=== PATIENT | female | born 1980 | race Caucasian/White ===

== ENCOUNTER 2016-12-15 02:57 | Emergency (ER) | payer BC, OTHER ==
[~2016-12-15] VITALS: Ht 154.9 cm; Wt 66.6 kg
[2016-12-15] MEDS ORDERED: SOD CHLORIDE 0.9% 1,000 ML IV STA (03:07)
[2016-12-15] MEDS ORDERED: ONDANSETRON 4 MG INJ IV STA (03:07)
[2016-12-15] MEDS ORDERED: morphine 4 MG/ML VIAL IV STA (03:07)
[2016-12-15] MEDS ORDERED: FAMOTIDINE 20 MG INJ IV STA (03:07)
[2016-12-15] MEDS ORDERED: LIDOCAINE/MYLANTA 40 ML BTL PO STA (03:07)
[2016-12-15] MEDS ORDERED: ONDANSETRON (ODT) 4 MG TAB ODT STA (03:14)
[2016-12-15 04:19] LABS: ADD SCAN DIFF NO
[2016-12-15 04:21] LABS: ADD UMIC YES; URINE BILIRUBIN (Dip) NEGATIVE (NEGATIVE); URINE BLOOD (Dip) TRACE (NEGATIVE); URINE COLOR YELLOW (YELLOW); URINE GLUCOSE (Dip) NEGATIVE (NEGATIVE); URINE KETONES (Dip) NEGATIVE (NEGATIVE); URINE LEUKOCYTE ESTERASE (Dip) NEGATIVE (NEGATIVE); URINE NITRITE (Dip) NEGATIVE (NEGATIVE); URINE TOTAL PROTEIN (Dip) NEGATIVE (NEGATIVE); URINE UROBILINOGEN (Dip) 1.0 E.U./dL (0.1-1.0)
[2016-12-15 04:23] LABS: BASOPHILS % 0.4 % (0.0-2.0); EOSINOPHILS # 0.2 10^3/ul (0.0-0.5); EOSINOPHILS % 1.9 % (0.0-7.0); HEMATOCRIT 37.7 % (37.0-47.0); HEMOGLOBIN 12.1 g/dl (12.0-16.0); LYMPHOCYTES # 2.3 10^3/ul (0.8-2.9); LYMPHOCYTES % 24.1 % (15.0-51.0); MEAN CORPUSCULAR HEMOGLOBIN 28.5 pg (29.0-33.0); MEAN CORPUSCULAR HGB CONC 32.1 g/dl (32.0-37.0); MEAN CORPUSCULAR VOLUME 88.7 fl (82.0-101.0); MEAN PLATELET VOLUME 10.4 fl (7.4-10.4); MONOCYTE # 0.7 10^3/ul (0.3-0.9); MONOCYTES % 7.7 % (0.0-11.0); NEUTROPHIL # 6.2 10^3/ul (1.6-7.5); NEUTROPHILS % 65.7 % (39.0-77.0); PLATELET COUNT 265 10^3/UL (140-415); RED BLOOD COUNT 4.25 10^6/ul (4.20-5.40); RED CELL DISTRIBUTION WIDTH 13.1 % (11.5-14.5); WHITE BLOOD COUNT 9.4 10^3/ul (4.8-10.8)
[2016-12-15 04:40] LABS: SQUAMOUS EPITHELIAL CELL,UR MODERATE; URINE RBCS 0-2 /HPF (0)
[2016-12-15 04:51] LABS: ALBUMIN 4.5 g/dl (3.3-4.9); ALBUMIN/GLOBULIN RATIO 1.73; BILIRUBIN,INDIRECT 0.3 mg/dl (0-1.1); BILIRUBIN,TOTAL 0.3 mg/dl (0.2-1.3); CALCIUM 8.7 mg/dl (8.4-10.2); CREATININE 0.58 mg/dl (0.44-1.00); POTASSIUM 3.9 mmol/L (3.5-5.1); TOTAL PROTEIN 7.1 g/dl (6.1-8.1)
--- NOTE | 2016-12-15 05:11 | ERD ---
ER Documentation Chief Complaint Date/Time DATE: 12/15/16 TIME: 05:08 Chief Complaint N/V since yesterday worse after eating in epigastric area HPI This is a 36-year-old female comes in with epigastric abdominal pain nausea vomiting since yesterday. We will at least voiced the belief no bleeding. Pain is mild to moderate in intensity. No fevers or chills. No sick contacts. Patient has history of gastritis in the past. ROS All systems reviewed and are negative except as per history of present illness. Allergies Allergies: Coded Allergies: No Known Allergy (Unverified Allergy, Unknown, 05/31/06) PMhx/Soc Medical and Surgical Hx: pt denies Medical Hx History of Surgery: Yes () Anesthesia Reaction: No Hx Neurological Disorder: No Hx Respiratory Disorders: No Hx Cardiac Disorders: No Hx Psychiatric Problems: No Hx Miscellaneous Medical Probl: No Hx Alcohol Use: No Hx Substance Use: No Hx Tobacco Use: No Smoking Status: Never smoker Physical Exam Vitals Vital Signs Date Time Temp Pulse Resp B/P Pulse Ox O2 Delivery O2 Flow Rate FiO2 12/15/16 04:58 98.0 67 16 121/69 99 Room Air 12/15/16 02:59 97.8 73 24 134/68 97 Physical Exam Const: [] Head: Atraumatic Eyes: Normal Conjunctiva ENT: Normal External Ears, Nose and Mouth. Neck: Full range of motion..~ No meningismus. Resp: Clear to auscultation bilaterally Cardio: Regular rate and rhythm, no murmurs Abd: Soft, non tender, non distended. Normal bowel sounds Skin: No petechiae or rashes Back: No midline or flank tenderness Ext: No cyanosis, or edema Neur: Awake and alert Psych: Normal Mood and Affect Result Diagram: 12/15/1640912/15/16409 Results 24 hrs Laboratory Tests Test 12/15/16 04:10 White Blood Count 9.410^3/ul Red Blood Count 4.2510^6/ul Hemoglobin 12.1g/dl Hematocrit 37.7% Mean Corpuscular Volume 88.7fl Mean Corpuscular Hemoglobin 28.5pg Mean Corpuscular Hemoglobin Concent 32.1g/dl Red Cell Distribution Width 13.1% Platelet Count 71562^3/UL Mean Platelet Volume 10.4fl Neutrophils % 65.7% Lymphocytes % 24.1% Monocytes % 7.7% Eosinophils % 1.9% Basophils % 0.4% Nucleated Red Blood Cells % 0.0/100WBC Neutrophils # 6.210^3/ul Lymphocytes # 2.310^3/ul Monocytes # 0.710^3/ul Eosinophils # 0.210^3/ul Basophils # 0.010^3/ul Nucleated Red Blood Cells # 0.010^3/ul Urine Color YELLOW Urine Clarity CLEAR Urine pH 5.5 Urine Specific [place] >=1.030 Urine Ketones NEGATIVE Urine Nitrite NEGATIVE Urine Bilirubin NEGATIVE Urine Urobilinogen 1.0 E.U./dL Urine Leukocyte Esterase NEGATIVE Urine Microscopic RBC 0-2/HPF Urine Microscopic WBC 2-5/HPF Urine Squamous Epithelial Cells MODERATE Urine Hemoglobin TRACE Urine Glucose NEGATIVE% Urine Total Protein NEGATIVE Sodium Level 142mmol/L Potassium Level 3.9mmol/L Chloride Level 107mmol/L Carbon Dioxide Level 25mmol/L Anion Gap 14 Blood Urea Nitrogen 16mg/dl Creatinine 0.58mg/dl Glucose Level 108mg/dl Calcium Level 8.7mg/dl Total Bilirubin 0.3mg/dl Direct Bilirubin 0.00mg/dl Indirect Bilirubin 0.3mg/dl Aspartate Amino Transf (AST/SGOT) 81IU/L Alanine Aminotransferase (ALT/SGPT) 63IU/L Alkaline Phosphatase 69IU/L Total Protein 7.1g/dl Albumin 4.5g/dl Globulin 2.60g/dl Albumin/Globulin Ratio 1.73 Lipase 63U/L Current Medications Medications (Trade) Dose Ordered Sig/Mary Lou Route PRN Reason Start Time Stop Time Status Last Admin Dose Admin Sodium Chloride (NS) 1,000 ml @ 1,000 mls/hr Q1H STAT IV 12/15/16 03:07 12/15/16 04:06 DC 12/15/16 04:13 Morphine Sulfate (morphine) 4 mg ONCE STAT IV 12/15/16 03:07 12/15/16 03:09 DC 12/15/16 04:02 Ondansetron HCl (Zofran Inj) 4 mg ONCE STAT IV 12/15/16 03:07 12/15/16 03:09 DC 12/15/16 04:02 Famotidine (Pepcid Iv) 20 mg ONCE STAT IV 12/15/16 03:07 12/15/16 03:09 DC 12/15/16 04:02 Miscellaneous Medication (Gi Cocktail (2)) 40 ml ONCE STAT PO 12/15/16 03:07 12/15/16 03:09 DC 12/15/16 03:27 Ondansetron HCl (Zofran Odt) 4 mg ONCE STAT ODT 12/15/16 03:14 12/15/16 03:15 DC 12/15/16 03:28 Procedures/MDM Medical decision-making: Very pleasant female epigastric development consistent with a history of gastritis. At this point is feeling much better. Patient be discharged home. Discharge home with Protonix and Carafate. Told to follow-up in 8 hours for serial abdominal exams. Patient understands care plan and diagnosis. Serial negative abdominal exams. Tolerating p.o. here in the ER. Departure Diagnosis: Primary Impression: Abdominal pain Abdominal location: epigastric Qualified Code: R10.13 - Epigastric pain Condition: Stable BERNICE TIPTON Dec 15, 2016 05:11
[2016-12-15] MEDS ORDERED: SUCR1TAB56 PO (05:23)
[2016-12-15] MEDS ORDERED: RANI150T9 PO (05:23)
[2016-12-15 05:40] VITALS: BP 118/64; PULSE 71; RESP 16; TEMP 98
[2016-12-15] MEDS ORDERED: DICY10CA60 PO (22:46)
[2016-12-15] MEDS ORDERED: HYDR-906 PO (22:46)
[2016-12-16 01:31] VITALS: Ht 154.9 cm; Wt 66.6 kg
== END 2016-12-15 05:45 | disposition home or self-care (01) ==
LOC: E/R 02:57
DX: R10.13 Epigastric pain (principal)
CPT/HCPCS: 36415; 80053; 81001; 83690; 85025; 96374; 96375; J2270; J2405; J7030; Z7502; Z7610

== ENCOUNTER 2016-12-15 19:38 | Inpatient (IN) | payer OTHER ==
[~2016-12-15] VITALS: Ht 154.9 cm; Wt 66.6 kg
[~2016-12-15 19:38] MED LIST: RANI150T9 PO; SUCR1TAB56 PO
[2016-12-15] MEDS ORDERED: SOD CHLORIDE 0.9% 1,000 ML IV STA (21:00)
[2016-12-15] MEDS ORDERED: PANTOPRAZOLE 40 MG INJ IV ONE (21:00)
[2016-12-15] MEDS ORDERED: ONDANSETRON 4 MG INJ IV STA (21:00)
[2016-12-15] MEDS ORDERED: LIDOCAINE/MYLANTA 40 ML BTL PO ONE (21:00)
[2016-12-15 21:25] LABS: ADD SCAN DIFF NO
[2016-12-15 21:27] LABS: BASOPHILS % 0.5 % (0.0-2.0); EOSINOPHILS # 0.1 10^3/ul (0.0-0.5); EOSINOPHILS % 1.7 % (0.0-7.0); HEMATOCRIT 39.5 % (37.0-47.0); HEMOGLOBIN 12.6 g/dl (12.0-16.0); LYMPHOCYTES # 1.4 10^3/ul (0.8-2.9); MEAN CORPUSCULAR HEMOGLOBIN 28.1 pg (29.0-33.0); MEAN CORPUSCULAR HGB CONC 31.9 g/dl (32.0-37.0); MEAN CORPUSCULAR VOLUME 88.2 fl (82.0-101.0); MEAN PLATELET VOLUME 9.9 fl (7.4-10.4); MONOCYTE # 0.5 10^3/ul (0.3-0.9); MONOCYTES % 8.8 % (0.0-11.0); NEUTROPHIL # 3.9 10^3/ul (1.6-7.5); NEUTROPHILS % 64.8 % (39.0-77.0); PLATELET COUNT 267 10^3/UL (140-415); RED BLOOD COUNT 4.48 10^6/ul (4.20-5.40); RED CELL DISTRIBUTION WIDTH 12.8 % (11.5-14.5)
[2016-12-15 21:28] LABS: ADD UMIC YES; UR BILIRUBIN (Dip) 2+ (NEGATIVE); UR BLOOD (Dip) TRACE (NEGATIVE); UR COLOR DK. YELLOW (YELLOW); UR GLUCOSE (Dip) NEGATIVE (NEGATIVE); UR KETONES (Dip) NEGATIVE (NEGATIVE); UR LEUKOCYTE ESTERASE (Dip) NEGATIVE (NEGATIVE); UR NITRITE (Dip) NEGATIVE (NEGATIVE); UR TOTAL PROTEIN (Dip) NEGATIVE (NEGATIVE); UR UROBILINOGEN (Dip) 1.0 E.U./dL (0.1-1.0)
[2016-12-15 21:41] LABS: BACTERIA,URINE FEW; ICTOTEST POSITIVE (NEGATIVE); UR CLARITY SL HAZY (CLEAR); UR SQUAMOUS EPITHELIAL CELL MODERATE; URINE RBCS 0-2 /HPF (0)
[2016-12-15 21:53] LABS: ALBUMIN 4.6 g/dl (3.3-4.9); ALBUMIN/GLOBULIN RATIO 1.48; BILIRUBIN,DIRECT 0.8 mg/dl (0.00-0.20); BILIRUBIN,INDIRECT 1.1 mg/dl (0-1.1); BILIRUBIN,TOTAL 1.9 mg/dl (0.2-1.3); CALCIUM 9.4 mg/dl (8.4-10.2); CREATININE 0.66 mg/dl (0.44-1.00); POTASSIUM 3.8 mmol/L (3.5-5.1); TOTAL PROTEIN 7.7 g/dl (6.1-8.1)
--- NOTE | 2016-12-15 21:55 | RADRPT ---
PROCEDURE: Right upper quadrant abdominal ultrasound. CLINICAL INDICATION: Abdominal pain TECHNIQUE: Muniz scale and color doppler ultrasound images of the right upper quadrant. COMPARISON: None FINDINGS: Pancreas: Visualized portions appear of normal echogenicity, no focal lesions. Liver: Morphology: Normal in size and contour. Echogenicity: Normal. Focal lesions: None. Main portal vein: Patent with hepatopetal flow. Biliary System: Normal appearing gallbladder wall. 1.5 cm gallstone within the neck of the gallbladder. Remainder of the gallbladder appears filled wi th sludge. No intrahepatic biliary dilatation. Common bile duct measures 4.5 mm in maximal dimension. Kidneys: Right 9.9 cm in length. Right renal cortical thickness is preserved. Normal echogenicity. No hydronephrosis. No renal calculi. No focal lesions. No free fluid identified. IMPRESSION: Cholelithiasis without evidence of abnormal gallbladder wall thickening to suggest cholecystitis. Normal caliber of the intrahepatic and extrahepatic biliary system. RPTAT: AADD .Yousif Berrios MD, MD Date Time Electronically viewed and signed by .Yousif Berrios MD, on 12/15/2016 21:54 .B/
[2016-12-15] MEDS ORDERED: HYDR-906 PO (22:46)
[2016-12-15] MEDS ORDERED: DICY10CA60 PO (22:46)
--- NOTE | 2016-12-16 00:29 | ERA ---
ER Documentation Chief Complaint Date/Time DATE: 12/16/16 TIME: 00:23 Chief Complaint epigastric pain x 4 days HPI 36-year-old female patient with no significant past medical history presents to the ED complaining of worsening epigastric pain that started 2 days ago. Reports that now she has right upper quadrant pain. States that she has some slight nausea and a few episodes of nonbilious nonbloody vomiting. Patient is denying any fever, chills, chest pain, shortness of breath, wheezing, diarrhea. Reports that she has daily bowel movements. Denies any vaginal bleeding, vaginal discharge, dysuria, urgency, frequency, flank pain. ROS All systems reviewed and are negative except as per history of present illness. Medications Home Meds Active Scripts Amoxicillin/Potassium Clav (Amox-Clav 875-125 mg Tablet) 875-125 mg Tab, 1 TAB PO BID for 5 Days, TAB Prov:GISSELLE RENO 12/17/16 Acetaminophen (MAPAP) 325 Mg Tablet, 650 MG PO Q6H Y for PAIN LEVEL 1-3 OR FEVER , #30 TAB OTC Prov:GISSELLE RENO 12/17/16 Ranitidine Hcl* (Zantac*) 150 Mg Tablet, 150 MG PO BID Y for EPIGASTRIC PAIN, # 30 TAB Prov:BERNICE TIPTON 12/15/16 Discontinued Scripts Sucralfate* (Carafate*) 1 Gm Tab, 1 GM PO QID, #30 TAB Prov:BERNICE TIPTON 12/15/16 Allergies Allergies: Coded Allergies: No Known Allergy (Unverified Allergy, Unknown, 05/31/06) PMhx/Soc Medical and Surgical Hx: pt denies Medical Hx History of Surgery: Yes () Anesthesia Reaction: No Hx Neurological Disorder: No Hx Respiratory Disorders: No Hx Cardiac Disorders: No Hx Psychiatric Problems: No Hx Miscellaneous Medical Probl: No Hx Alcohol Use: No Hx Substance Use: No Hx Tobacco Use: No Smoking Status: Never smoker Physical Exam Vitals Vital Signs Date Time Temp Pulse Resp B/P Pulse Ox O2 Delivery O2 Flow Rate FiO2 12/15/16 19:44 98.5 74 20 131/57 98 Physical Exam Const: [id number], well-nourished. In no acute distress. Head: Atraumatic, normocephalic Eyes: Normal Conjunctiva without injection. No purulent discharge. ENT: Normal external ear, nose. Moist oropharynx without tonsillar exudates. Non -erythematous pharynx. Uvula midline. No drooling. No trismus. Neck: No cervical midline tenderness. Full range of motion. No meningismus. No cervical lymphadenopathy. No JVD. Resp: Clear to auscultation bilaterally. No wheezing, rhonchi, rales, or crackles. No accessory muscle use. No retractions. Cardio: Regular rate and rhythm. No murmurs, rubs or gallops. Abd: Soft, right upper quadrant tenderness, epigastric tenderness, non distended. Normal bowel sounds. No palpable masses. No rebound tenderness. No guarding. Negative McBurney's point. Negative psoas sign. Negative obturator sign. Skin: No petechiae or rashes Back: No midline tenderness. No CVA tenderness. Ext: No cyanosis, or edema. Neur: Awake and alert. Normal gait. Normal coordination. Psych: Normal Mood and Affect Results 24 hrs Laboratory Tests Test 12/15/16 21:00 12/15/16 21:10 White Blood Count 6.010^3/ul Red Blood Count 4.4810^6/ul Hemoglobin 12.6g/dl Hematocrit 39.5% Mean Corpuscular Volume 88.2fl Mean Corpuscular Hemoglobin 28.1pg Mean Corpuscular Hemoglobin Concent 31.9g/dl Red Cell Distribution Width 12.8% Platelet Count 37206^3/UL Mean Platelet Volume 9.9fl Neutrophils % 64.8% Lymphocytes % 24.0% Monocytes % 8.8% Eosinophils % 1.7% Basophils % 0.5% Nucleated Red Blood Cells % 0.0/100WBC Neutrophils # 3.910^3/ul Lymphocytes # 1.410^3/ul Monocytes # 0.510^3/ul Eosinophils # 0.110^3/ul Basophils # 0.010^3/ul Nucleated Red Blood Cells # 0.010^3/ul Sodium Level 143mmol/L Potassium Level 3.8mmol/L Chloride Level 106mmol/L Carbon Dioxide Level 27mmol/L Anion Gap 14 Blood Urea Nitrogen 12mg/dl Creatinine 0.66mg/dl Glucose Level 100mg/dl Calcium Level 9.4mg/dl Total Bilirubin 1.9mg/dl Direct Bilirubin 0.80mg/dl Indirect Bilirubin 1.1mg/dl Aspartate Amino Transf (AST/SGOT) 665IU/L Alanine Aminotransferase (ALT/SGPT) 565IU/L Alkaline Phosphatase 147IU/L Total Protein 7.7g/dl Albumin 4.6g/dl Globulin 3.10g/dl Albumin/Globulin Ratio 1.48 Lipase 108U/L Urine Color DK. YELLOW Urine Clarity SL HAZY Urine pH 7.0 Urine Specific [place] 1.010 Urine Ketones NEGATIVE Urine Nitrite NEGATIVE Urine Bilirubin 2+ Urine Ictotest POSITIVE Urine Urobilinogen 1.0 E.U./dL Urine Leukocyte Esterase NEGATIVE Urine Microscopic RBC 0-2/HPF Urine Microscopic WBC 2-5/HPF Urine Squamous Epithelial Cells MODERATE Urine Bacteria FEW Urine Yeast FEW Urine Hemoglobin TRACE Urine Glucose NEGATIVE% Urine Total Protein NEGATIVE Current Medications Medications (Trade) Dose Ordered Sig/Mary Lou Route PRN Reason Start Time Stop Time Status Last Admin Dose Admin Sodium Chloride (NS) 1,000 ml @ 1,000 mls/hr Q1H STAT IV 12/15/16 21:00 12/15/16 21:59 DC 12/15/16 21:17 Pantoprazole (Protonix Iv) 40 mg ONCE ONCE IV 12/15/16 21:00 12/15/16 21:02 DC 12/15/16 21:17 Miscellaneous Medication (Gi Cocktail (2)) 40 ml ONCE ONCE PO 12/15/16 21:00 12/15/16 21:02 DC 12/15/16 21:17 Ondansetron HCl (Zofran Inj) 4 mg ONCE STAT IV 12/15/16 21:00 12/15/16 21:02 DC 12/15/16 21:17 Procedures/MDM This is a 36-year-old female with no significant past medical history presents to the ED complaining of epigastric pain and right upper quadrant pain that worsened. Patient was seen here yesterday and had a workup which was negative for any acute abdomen. Patient was further worked up with CBC, CMP, lipase, UA , urine , gallbladder ultrasound. Patient's pain and symptoms have improved after treatment with IV Protonix, 4 mg IV Zofran, GI cocktail. CBC: No leukocytosis. No e/o of systemic infection. No e/o anemia. CMP: No e/o severe acidosis, alkalosis, renal failure, diabetic ketoacidosis, liver disease Lipase within normal limits. Urine: No leukocyte esterase, no nitrites, no hematuria. Urine : negative PROCEDURE: Right upper quadrant abdominal ultrasound. CLINICAL INDICATION: Abdominal pain TECHNIQUE: Muniz scale and color doppler ultrasound images of the right upper quadrant. COMPARISON: None FINDINGS: Pancreas: Visualized portions appear of normal echogenicity, no focal lesions. Liver: Morphology: Normal in size and contour. Echogenicity: Normal. Focal lesions: None. Main portal vein: Patent with hepatopetal flow. Biliary System: Normal appearing gallbladder wall. 1.5 cm gallstone within the neck of the gallbladder. Remainder of the gallbladder appears filled with sludge. No intrahepatic biliary dilatation. Common bile duct measures 4.5 mm in maximal dimension. Kidneys: Right 9.9 cm in length. Right renal cortical thickness is preserved. Normal echogenicity. No hydronephrosis. No renal calculi. No focal lesions. No free fluid identified. IMPRESSION: Cholelithiasis without evidence of abnormal gallbladder wall thickening to suggest cholecystitis. Normal caliber of the intrahepatic and extrahepatic biliary system. Patient has cholelithiasis and liver enzymes are elevated. Elevated bilirubin at 1.9. Patient could have early choledocholithiasis. Low suspicion for gastritis, GERD, peptic ulcer disease, pancreatitis, appendicitis, bowel obstruction, ileus, volvulus, nephrolithiasis, pyelonephritis, hepatitis, perforated viscus, diverticulitis, abdominal hernia, acute abdomen, mesenteric ischemia or other emergent conditions. My supervising physician, Dr. Tipton who agreed with the management and discharge plan. Patient agreed to admission. We both agreed to admit the patient at this time. Patient agreed to admission. Questions were answered. Patient will now be under the care of Dr. Tipton. Departure Diagnosis: Primary Impression: Cholelithiasis Qualified Code: K80.80 - Biliary calculus of other site without obstruction Condition: Stable HALI MOLINA PA-C Dec 16, 2016 00:29
[2016-12-16 00:53] VITALS: PULSE 69; TEMP 99.1
[2016-12-16 01:25] VITALS: BP 131/61; RESP 18
[2016-12-16 01:46] VITALS: Ht 154.9 cm; Wt 66.6 kg
[2016-12-16] MEDS ORDERED: NACL 0.9% 3 ML SYG IV SCH (02:30)
[2016-12-16] MEDS ORDERED: ONDANSETRON 4 MG INJ IV PRN (02:30)
[2016-12-16] MEDS ORDERED: BISACODYL 10 MG SUPP PR PRN (02:30)
[2016-12-16] MEDS ORDERED: HYDROCODONE/APAP (5/325) TAB PO PRN ×2 (02:30)
[2016-12-16] MEDS ORDERED: DOCUSATE SODIUM 100 MG CAP PO PRN (02:30)
[2016-12-16] MEDS ORDERED: ACETAMINOPHEN 325 MG TAB PO PRN (02:30)
[2016-12-16] MEDS ORDERED: MAGNESIUM HYDROXIDE 30ML CUP PO PRN (02:30)
[2016-12-16] MEDS ORDERED: morphine 2 MG INJ IV PRN (02:30)
[2016-12-16] MEDS: D5-NS + KCL 20 MEQ 1,000 ML IV SCH ×3 (03:13→21:02)
[2016-12-16] MEDS: PIPER-TAZO 3.375 GM IV (PMX) 100 ML IVPB SCH ×3 (05:54→21:02)
[2016-12-16 06:02] LABS: ADD SCAN DIFF NO
[2016-12-16 06:07] LABS: BASOPHILS % 0.4 % (0.0-2.0); EOSINOPHILS # 0.1 10^3/ul (0.0-0.5); EOSINOPHILS % 2.3 % (0.0-7.0); HEMATOCRIT 35.2 % (37.0-47.0); HEMOGLOBIN 11.8 g/dl (12.0-16.0); LYMPHOCYTES # 1.2 10^3/ul (0.8-2.9); LYMPHOCYTES % 22.9 % (15.0-51.0); MEAN CORPUSCULAR HEMOGLOBIN 29.4 pg (29.0-33.0); MEAN CORPUSCULAR HGB CONC 33.5 g/dl (32.0-37.0); MEAN CORPUSCULAR VOLUME 87.6 fl (82.0-101.0); MEAN PLATELET VOLUME 10.7 fl (7.4-10.4); MONOCYTE # 0.4 10^3/ul (0.3-0.9); MONOCYTES % 8.1 % (0.0-11.0); NEUTROPHIL # 3.5 10^3/ul (1.6-7.5); NEUTROPHILS % 66.3 % (39.0-77.0); PLATELET COUNT 239 10^3/UL (140-415); RED BLOOD COUNT 4.02 10^6/ul (4.20-5.40); RED CELL DISTRIBUTION WIDTH 12.8 % (11.5-14.5); WHITE BLOOD COUNT 5.3 10^3/ul (4.8-10.8)
[2016-12-16 06:31] LABS: INR 1.03; PROTIME 13.5 Sec (12.2-14.2); PT RATIO 1.1
[2016-12-16 06:32] LABS: PARTIAL THROMBOPLASTIN TIME 28.2 Sec (25.0-35.0)
[2016-12-16 06:53] LABS: ALBUMIN 4.2 g/dl (3.3-4.9); ALBUMIN/GLOBULIN RATIO 1.68; BILIRUBIN,DIRECT 0.9 mg/dl (0.00-0.20); BILIRUBIN,INDIRECT 1.2 mg/dl (0-1.1); BILIRUBIN,TOTAL 2.1 mg/dl (0.2-1.3); CALCIUM 8.7 mg/dl (8.4-10.2); CHOL/HDL RATIO 3.4 RATIO; CREATININE 0.66 mg/dl (0.44-1.00); PHOSPHORUS 3.4 mg/dl (2.5-4.9); POTASSIUM 3.8 mmol/L (3.5-5.1); TOTAL PROTEIN 6.7 g/dl (6.1-8.1)
[2016-12-16 07:40] VITALS: BP 141/78; RESP 18
[2016-12-16] MEDS: FAMOTIDINE 20 MG INJ IV SCH ×2 (09:16→21:02)
--- NOTE | 2016-12-16 09:32 | RADRPT ---
PROCEDURE: MRCP. CLINICAL INDICATION: Abdominal pain. TECHNIQUE: MRCP was performed. Patient was examined without contrast. 3-D coronal rotating MIP i mages of the biliary tree are available for review. COMPARISON: Ultrasound, 12/15/2016 FINDINGS: The gallbladder is distended and contains sludge. 3.2 cm gallstone is seen in the gallbladder neck. No definite evidence of gallbladder wall thickening or pericholecystic fluid is identified. There is no intra or extrahepatic biliary dilatation. No evidence of common duct stone, stricture or fill ing defect is identified. Pancreatic duct is normal in caliber. Liver, pancreas, spleen, adrenal glands and kidneys are unremarkable except for benign renal cysts. There is no obstructive uropathy. The stomach is grossly unremarkable. Abdominal aorta is normal in caliber. No retroperitoneal or ishaan hepatis lymphadenopathy is identified. There is no bowel o bstruction, abscess or ascites. The surrounding osseous structures are unremarkable. IMPRESSION: 1. The gallbladder is distended and contains sludge. Large gallstone is seen in the gallbladder ne ck. No gross evidence is seen to indicate cholecystitis. 2. No biliary dilatation or evidence of choledocholithiasis is identified. RPTAT: HDWR .Jeff Berman MD, MD Date Time Electronically viewed and signed by .Jeff Berman MD, on 12/16/2016 09:32 .R/
--- NOTE | 2016-12-16 12:29 | HP ---
DATE OF ADMISSION: 12/16/2016 CHIEF COMPLAINT ON ADMISSION: Abdominal pain. HISTORY OF PRESENT ILLNESS: This is a 36-year-old female who recently delivered a baby via C-sectio n 2 months ago, who started having severe epigastric pain 3 days ago. The patient having episodes o f nausea and vomiting also. She denies any fever or chills. The pain was persistent and worsening over the past 3 days. She came to the emergency department yesterday afternoon. In the emergency d [facility], she was complaining of the pain being epigastric and radiating now to her right upper yvette drant, severe, and also across her abdomen to her back. Her LFTs were abnormal with significant tra nsaminitis and a bilirubin of 1.9. She had a gallbladder ultrasound that showed cholelithiasis, but was inconclusive for acute cholecystitis. Her white count is within normal. She was admitted to [facility] surgical bed on IV antibiotics and IV fluids. This morning, her pain is completely resolved. She denies any nausea or vomiting this morning. She has been n.p.o. Repeat LFTs, this morning ar e still abnormal with significant transaminitis and a bilirubin of 2.1. She did have an MRCP done t hat did show cholelithiasis but no signs of choledocholithiasis per report. The gallbladder is dist ended and no evidence of common duct stone, stricture, or filling defect. The pancreatic duct was a lso normal. I had a discussion with Dr. Hanson from general surgery. Given her abnormal LFTs, he is still requesting for gastroenterology to evaluate the patient. There is a possibility that she did pass a stone versus it is not detected on MRCP. The patient is kept n.p.o. Dr. Torres has been al so consulted. ALLERGIES: NO KNOWN ALLERGIES. PAST MEDICAL HISTORY: None. PAST SURGICAL HISTORY: Status post 2 months ago for delivery of a healthy baby. SOCIAL HISTORY: The patient lives with family. She does not smoke or drink alcohol. REVIEW OF SYSTEMS: As per HPI. OUTPATIENT MEDICATIONS: None. PHYSICAL EXAMINATION: VITAL SIGNS: Temperature is 98.6, heart rate of 75, respiratory rate of 18, blood pressure 141/78. The patient is satting 98% on room air. GENERAL: She is alert and oriented x4. She is in no acute distress this morning. She has no tende rness to palpation. She is comfortable sitting in the chair. HEENT: Pupils are equally round and reactive to light. Extraocular muscles are intact. Anicteric sclerae. NECK: No JVD, no thyromegaly noted. HEART: Regular rate and rhythm. No murmur, rubs, or gallops. LUNGS: Clear to auscultation bilaterally. ABDOMEN: Soft, no tenderness elicited on the right upper quadrant or epigastric area. Bowel sounds are present. EXTREMITIES: No edema, clubbing or cyanosis. NEUROLOGIC: Grossly intact. LABORATORY DATA: White blood cell count is 5.3, hemoglobin 11.8, hematocrit 35.2, platelet count 23 9. Chemistry with a sodium of 143, potassium 2.8, chloride 109, bicarbonate 26, BUN 10, creatinine 0.66, glucose of 121, calcium of 8.7, phosphorus 3.4, magnesium 2.00, total bilirubin 2.1, AST 578, ALT 548, alkaline phosphatase of 152. Total protein 6.7, albumin 4.2. Triglycerides 71, cholestero l 148, LDL 91, HDL 43, lipase of 108. INR 1.03, PT 13.5, PTT 28.2. Urinalysis is negative for nitr ites or leukocyte esterase. RADIOLOGICAL DATA: 1. Gallbladder ultrasound showed cholelithiasis without evidence of normal gallbladder wall thicken ing to suggest cholecystitis, normal caliber, intrahepatic and extrahepatic biliary system. 2. MRCP this morning showed gallbladder distended and contains sludge. Large gallstones seen in th e gallbladder neck. No gross evidence seen to indicate cholecystitis, no biliary dilatation or evid ence of choledocholithiasis identified. 3. Acute hepatitis panel is pending. ASSESSMENT AND PLAN: This is a 36-year-old female with: 1. Acute onset of epigastric right upper quadrant pain with gallstone disease seen. No definite ev idence of acute cholecystitis or choledocholithiasis. I had a discussion with Dr. Hanson who also wo uld prefer to have gastroenterology see the patient and decide regarding need for ERCP versus assumi ng that the patient passed a stone. Depending on the patient's symptoms and course of her LFTs, she may need inpatient cholecystectomy versus outpatient. She is currently on antibiotics and n.p.o. Continue IV fluids. Follow up gastroenterology and further surgical recommendation. 2. Prophylaxis. SCDs to lower extremities for DVT prophylaxis. Pepcid for GI prophylaxis. DISPOSITION: Gastroenterology and general surgery consult pending. Dictated By: GISSELLE MARTINEZ/LINETTE Conf#: [id number] DID#: [id number]
--- NOTE | 2016-12-16 12:46 | CONS ---
Date/Time of Note Date/Time of Note DATE: 12/16/16 TIME: 12:46 Assessment/Plan Assessment/Plan Chief Complaint/Hosp Course 36-year-old female with cholelithiasis/chronic cholecystitis, possible choledocholithiasis * LFTs remain elevated. Continue to monitor * It is possible the patient either passed a common bile duct stone or has a distal stone which can sometimes be missed by MRCP. * Recommend GI consult for possible ERCP if LFTs do not decrease. * Continue n.p.o. IV fluid hydration until patient seen by gastroenterology. Further recommendations will be made based on patient's clinical course. Problems: Consultation Date/Type/Reason Admit Date/Time Dec 16, 2016 at 00:38 Date of Consultation: Dec 16, 2016 Type of Consultation: GENERAL SURGERY Reason for Consultation Abdominal pain Hx of Present Illness Patient is an otherwise healthy 36-year-old female status post recent 2 months ago who presented to the emergency room complaining of a 3 day history of abdominal pain. She describes the pain as being located in the epigastrium and right upper quadrant and radiating to the right flank. She denies any nausea/vomiting, change in bowel habits, or fever/chills. On arrival to the emergency room she was found to be afebrile and hemodynamically stable. She did have elevated liver function enzymes. An ultrasound which was done showed the presence of gallstones without any gallbladder wall thickening or pericholecystic fluid. An MRCP was done which showed gallstones without any evidence of cholecystitis or choledocholithiasis. The patient is since been admitted. She reports that her abdominal pain has resolved. She denies any similar episodes of pain in the past. A 14 point review of systems was conducted and was negative except for that which is mentioned in HPI Past Medical History Medical History: no pertinent history Past Surgical History Past Surgical Hx: other ( 4) Family History Significant Family History: no pertinent family hx Social History Smoking Status: Never smoker Exam/Review of Systems Vital Signs Vitals Vital Signs Date Time Temp Pulse Resp B/P Pulse Ox O2 Delivery O2 Flow Rate FiO2 12/16/16 07:40 98.6 75 18 141/78 98 12/16/16 00:53 Room Air Intake and Output 12/15/16 12/15/16 12/16/16 15:00 23:00 07:00 Intake Total 400 ml Balance 400 ml Exam GENERAL: Awake, alert, oriented x 3. No acute distress. SKIN: No jaundice. HEENT: PERRLA, EOMI, No Scleral Icterus NECK: Supple without JVD CARDIOVASCULAR: S1S2, regular rate and rhythm. No murmurs appreciated. RESPIRATORY: Clear to auscultation bilaterally. ABDOMEN: Soft, bowel sounds present, nondistended, nontender to palpation. EXTREMITIES: Free range of motion x 4. No cyanosis, edema, or clubbing. NEUROLOGIC: Cranial nerves II-XII are intact. Sensation is intact grossly. Results Result Diagram: 12/16/16 0420 12/16/16 0420 Results 24 hrs Laboratory Tests Test 12/15/16 21:00 12/15/16 21:10 12/16/16 04:20 White Blood Count 6.0 # 5.3 Red Blood Count 4.48 4.02 L Hemoglobin 12.6 11.8 L Hematocrit 39.5 35.2 L Mean Corpuscular Volume 88.2 87.6 Mean Corpuscular Hemoglobin 28.1 L 29.4 Mean Corpuscular Hemoglobin Concent 31.9 L 33.5 Red Cell Distribution Width 12.8 12.8 Platelet Count 267 239 Mean Platelet Volume 9.9 10.7 H Neutrophils % 64.8 66.3 Lymphocytes % 24.0 22.9 Monocytes % 8.8 8.1 Eosinophils % 1.7 2.3 Basophils % 0.5 0.4 Nucleated Red Blood Cells % 0.0 0.0 Neutrophils # 3.9 3.5 Lymphocytes # 1.4 1.2 Monocytes # 0.5 0.4 Eosinophils # 0.1 0.1 Basophils # 0.0 0.0 Nucleated Red Blood Cells # 0.0 0.0 Sodium Level 143 143 Potassium Level 3.8 3.8 Chloride Level 106 109 Carbon Dioxide Level 27 26 Anion Gap 14 12 Blood Urea Nitrogen 12 10 Creatinine 0.66 0.66 Glucose Level 100 121 Calcium Level 9.4 8.7 Total Bilirubin 1.9 H 2.1 H Direct Bilirubin 0.80 #H 0.90 H Indirect Bilirubin 1.1 1.2 H Aspartate Amino Transf (AST/SGOT) 665 H 578 H Alanine Aminotransferase (ALT/SGPT) 565 H 548 H Alkaline Phosphatase 147 #H 152 H Total Protein 7.7 6.7 # Albumin 4.6 4.2 Globulin 3.10 2.50 Albumin/Globulin Ratio 1.48 1.68 Lipase 108 Urine Color DK. YELLOW Urine Clarity SL HAZY Urine pH 7.0 Urine Specific [place] 1.010 Urine Ketones NEGATIVE Urine Nitrite NEGATIVE Urine Bilirubin 2+ H Urine Ictotest POSITIVE Urine Urobilinogen 1.0 E.U./dL Urine Leukocyte Esterase NEGATIVE Urine Microscopic RBC 0-2 Urine Microscopic WBC 2-5 Urine Squamous Epithelial Cells MODERATE Urine Bacteria FEW Urine Yeast FEW Urine Hemoglobin TRACE Urine Glucose NEGATIVE Urine Total Protein NEGATIVE Prothrombin Time 13.5 Prothrombin Time Ratio 1.1 INR International Normalized Ratio 1.03 Activated Partial Thromboplast Time 28.2 Phosphorus Level 3.4 Magnesium Level 2.0 Triglycerides Level 71 Cholesterol Level 148 LDL Cholesterol, Calculated 91 HDL Cholesterol 43 Cholesterol/HDL Ratio 3.4 Medications Medications Current Medications Ondansetron HCl (Zofran Inj) 4 mg Q6H PRN IV NAUSEA AND/OR VOMITING; Start at 02:30 Acetaminophen (Tylenol Tab) 650 mg Q6H PRN PO PAIN LEVEL 1-3 OR FEVER; Start at 02:30 Acetaminophen/ Hydrocodone Bitart ([place] (5/325)) 1 tab Q6H PRN PO MODERATE PAIN LEVEL 4-6; Start 12/16/16 at 02:30 Acetaminophen/ Hydrocodone Bitart ([place] (5/325)) 2 tab Q6H PRN PO SEVERE PAIN LEVEL 7-10; Start 12/16/16 at 02:30 Morphine Sulfate (morphine) 2 mg Q4H PRN IV SEVERE PAIN LEVEL 7-10; Start 12/16 at 02:30 Docusate Sodium (Colace) 100 mg Q12H PRN [place] CONSTIPATION Last administered on 03:13; Admin Dose 100 MG; Start 12/16/16 at 02:30 Magnesium Hydroxide (Milk Of Mag) 30 ml DAILY PRN [place] CONSTIPATION; Start at 02:30 Bisacodyl (Dulcolax Supp) 10 mg DAILY PRN [place] CONSTIPATION; Start 12/16/16 at 02 :30 Famotidine 20 mg 20 mg Q12 IV Last administered on 12/16/16 09:16; Admin Dose 20 MG; Start 12/16/16 at 09:00 Piperacillin Sod/ Tazobactam Sod 100 ml @ 200 mls/hr Q8 IVPB Last administered on 12/16/16 05:54; Admin Dose 200 MLS/HR; Start 12/16/16 at 06:00 Potassium Chloride/Dextrose/ Sod Cl (D5-NS + KCl 20 Meq) 1,000 ml @ 100 mls/hr Q10H IV Last administered on 12/16/16 03:13; Admin Dose 100 MLS/HR; Start at 02:30 Procedures Procedures PROCEDURE: MRCP. CLINICAL INDICATION: Abdominal pain. TECHNIQUE: MRCP was performed. Patient was examined without contrast. 3-D coronal rotating MIP images of the biliary tree are available for review. COMPARISON: Ultrasound, 12/15/2016 FINDINGS: The gallbladder is distended and contains sludge. 3.2 cm gallstone is seen in the gallbladder neck. No definite evidence of gallbladder wall thickening or pericholecystic fluid is identified. There is no intra or extrahepatic biliary dilatation. No evidence of common duct stone, stricture or filling defect is identified. Pancreatic duct is normal in caliber. Liver, pancreas, spleen, adrenal glands and kidneys are unremarkable except for benign renal cysts. There is no obstructive uropathy. The stomach is grossly unremarkable. Abdominal aorta is normal in caliber. No retroperitoneal or ishaan hepatis lymphadenopathy is identified. There is no bowel obstruction, abscess or ascites. The surrounding osseous structures are unremarkable. IMPRESSION: 1. The gallbladder is distended and contains sludge. Large gallstone is seen in the gallbladder neck. No gross evidence is seen to indicate cholecystitis. 2. No biliary dilatation or evidence of choledocholithiasis is identified. RPTAT: HDWR .Jeff Berman MD, Date Time Electronically viewed and signed by .Jeff Berman MD, on 12/16/2016 09: 32 .R/ CC: GISSELLE RENO MICHAEL A. MD Dec 16, 2016 12:46
[2016-12-16 13:41] LABS: HAAIG REFLEX REFLEX FILED
[2016-12-16 14:02] LABS: AMYLASE 61 U/L (11-123)
--- NOTE | 2016-12-16 14:27 | CONS ---
Date/Time of Note Date/Time of Note DATE: 12/16/16 TIME: 14:11 Assessment/Plan Assessment/Plan Additional Assessment/Plan Assessment * Abdominal pain Ultrasound Cholelithiasis without evidence of abnormal gallbladder wall thickening to suggest cholecystitis. Normal caliber of the intrahepatic and extrahepatic biliary system. MRCP The gallbladder is distended and contains sludge. Large gallstone is seen in the gallbladder neck. No gross evidence is seen to indicate .cholecystitis. No biliary dilatation or evidence of choledocholithiasis is identified * Transaminitis Plan * Monitor liver enzymes * request for HIDA scan * adequate pain control Consultation Date/Type/Reason Admit Date/Time Dec 16, 2016 at 00:38 Date of Consultation: Dec 16, 2016 Type of Consultation: Gastroenterology Reason for Consultation Transaminitis Referring Provider: GISSELLE RENO Hx of Present Illness 36 year old with no known past medical history presented to ER because of abdominal pain.The pain started 4 days ago as right upper quadrant pain with associated nausea/vomiting.Patient denies any chest pain,shortness of breath, hematemesis,nor any history of travelling out of the country.Right upper quadrant pain getting worse with nausea no vomiting hence consult. Emergency course revealed transaminitis ALT 665 now 578, ALT 565 to 548 , alkaline phosphatase 147 to 152.Ultrasound revealed Cholelithiasis without evidence of abnormal gallbladder wall thickening to suggest cholecystitis.Normal caliber of the intrahepatic and extrahepatic biliary system. MRCP revealed 1. The gallbladder is distended and contains sludge. Large gallstone is seen in the gallbladder neck. No gross evidence is seen to indicate cholecystitis. No biliary dilatation or evidence of choledocholithiasis is identified. Presently patient has still on and off abdominal pain but afebrile. Constitutional: improved, no complaints Eyes: no complaints ENT: no complaints Respiratory: no complaints Cardiovascular: no complaints Gastrointestinal: pain Genitourinary: no complaints Musculoskeletal: no complaints Skin: no complaints Neurologic: no complaints Endocrine: no complaints Lymphatic: no complaints Psychological: nl mood/affect, no complaints Immunologic: no complaints Past Medical History Medical History: no pertinent history Past Surgical History Past Surgical Hx: other ( 4) Family History Significant Family History: no pertinent family hx Social History Smoking Status: Never smoker Exam/Review of Systems Vital Signs Vitals Vital Signs Date Time Temp Pulse Resp B/P Pulse Ox O2 Delivery O2 Flow Rate FiO2 6/14/17 07:40 98.6 75 18 141/78 98 12/16/16 00:53 Room Air Intake and Output 12/15/16 12/15/16 12/16/16 15:00 23:00 07:00 Intake Total 400 ml Balance 400 ml Exam Constitutional: alert, oriented, well developed Psych: nl mood/affect, no complaints Head: atraumatic, normocephalic Eyes: EOMI, PERRL, nl conjunctiva, nl lids, nl sclera ENMT: nl external ears & nose, nl lips & teeth, nl nasal mucosa & septum Neck: non-tender, supple Respiratory: clear to auscultation, normal air movement Cardiovascular: nl pulses, regular rate and rhythm Gastrointestinal: nl liver, spleen, soft, tender (right upper quadrant), No rebound or guarding Musculoskeletal: nl extremities to inspection, nl gait and stance Extremities: normal pulses Neurological: 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 HELPER II-XII intact, nl mental status, nl speech, nl strength Skin: nl turgor, No rash or lesions Lymph: nl lymph nodes Results Result Diagram: 12/16/16 0420 12/16/16 0420 Results 24 hrs Laboratory Tests Test 12/15/16 21:00 12/15/16 21:10 12/16/16 04:20 12/16/16 13:06 White Blood Count 6.0 # 5.3 Red Blood Count 4.48 4.02 L Hemoglobin 12.6 11.8 L Hematocrit 39.5 35.2 L Mean Corpuscular Volume 88.2 87.6 Mean Corpuscular Hemoglobin 28.1 L 29.4 Mean Corpuscular Hemoglobin Concent 31.9 L 33.5 Red Cell Distribution Width 12.8 12.8 Platelet Count 267 239 Mean Platelet Volume 9.9 10.7 H Neutrophils % 64.8 66.3 Lymphocytes % 24.0 22.9 Monocytes % 8.8 8.1 Eosinophils % 1.7 2.3 Basophils % 0.5 0.4 Nucleated Red Blood Cells % 0.0 0.0 Neutrophils # 3.9 3.5 Lymphocytes # 1.4 1.2 Monocytes # 0.5 0.4 Eosinophils # 0.1 0.1 Basophils # 0.0 0.0 Nucleated Red Blood Cells # 0.0 0.0 Sodium Level 143 143 Potassium Level 3.8 3.8 Chloride Level 106 109 Carbon Dioxide Level 27 26 Anion Gap 14 12 Blood Urea Nitrogen 12 10 Creatinine 0.66 0.66 Glucose Level 100 121 Calcium Level 9.4 8.7 Total Bilirubin 1.9 H 2.1 H Direct Bilirubin 0.80 #H 0.90 H Indirect Bilirubin 1.1 1.2 H Aspartate Amino Transf (AST/SGOT) 665 H 578 H Alanine Aminotransferase (ALT/SGPT) 565 H 548 H Alkaline Phosphatase 147 #H 152 H Total Protein 7.7 6.7 # Albumin 4.6 4.2 Globulin 3.10 2.50 Albumin/Globulin Ratio 1.48 1.68 Lipase 108 68 Urine Color DK. YELLOW Urine Clarity SL HAZY Urine pH 7.0 Urine Specific [place] 1.010 Urine Ketones NEGATIVE Urine Nitrite NEGATIVE Urine Bilirubin 2+ H Urine Ictotest POSITIVE Urine Urobilinogen 1.0 E.U./dL Urine Leukocyte Esterase NEGATIVE Urine Microscopic RBC 0-2 Urine Microscopic WBC 2-5 Urine Squamous Epithelial Cells MODERATE Urine Bacteria FEW Urine Yeast FEW Urine Hemoglobin TRACE Urine Glucose NEGATIVE Urine Total Protein NEGATIVE Prothrombin Time 13.5 Prothrombin Time Ratio 1.1 INR International Normalized Ratio 1.03 Activated Partial Thromboplast Time 28.2 Phosphorus Level 3.4 Magnesium Level 2.0 Triglycerides Level 71 Cholesterol Level 148 LDL Cholesterol, Calculated 91 HDL Cholesterol 43 Cholesterol/HDL Ratio 3.4 Amylase Level 61 Hepatitis B Surface Antigen Pending Hepatitis B Core Total Antibody Pending Hepatitis C Antibody Pending Medications Medications Current Medications Ondansetron HCl (Zofran Inj) 4 mg Q6H PRN IV NAUSEA AND/OR VOMITING; Start at 02:30 Acetaminophen (Tylenol Tab) 650 mg Q6H PRN PO PAIN LEVEL 1-3 OR FEVER; Start at 02:30 Acetaminophen/ Hydrocodone Bitart ([place] (5/325)) 1 tab Q6H PRN PO MODERATE PAIN LEVEL 4-6; Start 12/16/16 at 02:30 Acetaminophen/ Hydrocodone Bitart ([place] (5/325)) 2 tab Q6H PRN PO SEVERE PAIN LEVEL 7-10; Start 12/16/16 at 02:30 Morphine Sulfate (morphine) 2 mg Q4H PRN IV SEVERE PAIN LEVEL 7-10; Start 12/16 at 02:30 Docusate Sodium (Colace) 100 mg Q12H PRN PO CONSTIPATION Last administered on 03:13; Admin Dose 100 MG; Start 12/16/16 at 02:30 Magnesium Hydroxide (Milk Of Mag) 30 ml DAILY PRN PO CONSTIPATION; Start at 02:30 Bisacodyl (Dulcolax Supp) 10 mg DAILY PRN [place] CONSTIPATION; Start 12/16/16 at 02 :30 Famotidine 20 mg 20 mg Q12 IV Last administered on 12/16/16 09:16; Admin Dose 20 MG; Start 12/16/16 at 09:00 Piperacillin Sod/ Tazobactam Sod 100 ml @ 200 mls/hr Q8 IVPB Last administered on 12/16/16 05:54; Admin Dose 200 MLS/HR; Start 12/16/16 at 06:00 Potassium Chloride/Dextrose/ Sod Cl (D5-NS + KCl 20 Meq) 1,000 ml @ 100 mls/hr Q10H IV Last administered on 12/16/16 03:13; Admin Dose 100 MLS/HR; Start at 02:30 CATHIE TOLENTINO MD Dec 16, 2016 14:21
[2016-12-16 21:28] VITALS: BP 135/77; RESP 18
[2016-12-17] MEDS: PIPER-TAZO 3.375 GM IV (PMX) 100 ML IVPB SCH ×2 (05:45→16:55)
[2016-12-17] MEDS: D5-NS + KCL 20 MEQ 1,000 ML IV SCH (06:30)
[2016-12-17 08:00] VITALS: BP 129/59; RESP 19
[2016-12-17 08:01] LABS: BILIRUBIN,DIRECT 0.1 mg/dl (0.00-0.20); BILIRUBIN,TOTAL 1.1 mg/dl (0.2-1.3)
[2016-12-17] MEDS: FAMOTIDINE 20 MG INJ IV SCH (08:17)
--- NOTE | 2016-12-17 09:09 | RADRPT ---
PROCEDURE: HIDA scan CLINICAL INDICATION: 36 -year-old patient with abdominal pain. TECHNIQUE: Following the intravenous injection of 8.0 mCi of Tc-99m mebrofenin, multiple images of the abdomen were obtained up to 4 hours post injection. COMPARISON: No prior studies. FINDINGS: The liver is promptly visualized, demonstrates homogeneous distribution of radionuclide. Images of the abdomen obtained up to 90 minutes post injection demonstrates a persistent liver activ ity with no evidence of biliary clearance of activity. Delayed views of the abdomen obtained at 4.5 hours post injection demonstrate a visualization of the gastrointestinal uptake. However, the gallbladder is not visualized up to 4.5 hours post injection. IMPRESSION: 1. Nonvisualization of the gallbladder up to 4.5 hours post injection. 2. No evidence of a common bile duct obstruction. 3. Persistent liver activity. RPTAT: HH .Anisha Mcnally MD, Date Time Electronically viewed and signed by .Anisha Mcnally MD, on 12/17/2016 09:08 .L/
--- NOTE | 2016-12-17 10:45 | PN ---
Date/Time of Note Date/Time of Note DATE: 12/17/16 TIME: 10:43 Assessment/Plan Lines/Catheters IV Catheter Type (from [facility]): Peripheral IV [place] in Place (from [facility]): No Assessment/Plan Assessment/Plan 36-year-old female with cholelithiasis/chronic cholecystitis, possible choledocholithiasis * LFTs remain elevated, but trending downwards. Continue to monitor * It is possible the patient either passed a common bile duct stone or has a distal stone which can sometimes be missed by MRCP. * HIDA scan with nonvisualization of gallbladder. There is bowel activity. * Patient is clinically pain-free and wants to go home. Would recommend advancing diet as tolerated. If she tolerates diet then she can be discharged with plans for outpatient cholecystectomy once she has recovered fully from her recent . If she does not tolerate diet then more urgent cholecystectomy would be required on this admission. Further recommendations will be made based on patient's clinical course. Subjective 24 Hr Interval Summary Denies abdominal pain. She wants to go home and be with her baby. Afebrile. Exam/Review of Systems Vital Signs Vitals Vital Signs Date Time Temp Pulse Resp B/P Pulse Ox O2 Delivery O2 Flow Rate FiO2 12/17/16 08:00 98.3 63 19 129/59 95 12/16/16 00:53 Room Air Intake and Output 12/16/16 12/16/16 12/17/16 15:00 23:00 07:00 Intake Total 1000 ml 1100 ml Balance 1000 ml 1100 ml Exam Free Text/Dictation GENERAL: Awake, alert, oriented x 3. No acute distress. SKIN: No jaundice. HEENT: PERRLA, EOMI, No Scleral Icterus CARDIOVASCULAR: S1S2, regular rate and rhythm. No murmurs appreciated. RESPIRATORY: Clear to auscultation bilaterally. ABDOMEN: Soft, bowel sounds present, nondistended, nontender to palpation. EXTREMITIES: Free range of motion x 4. No cyanosis, edema, or clubbing. Results Result Diagram: 12/16/1641912/16/16419 BECKIE BETHEA MD Dec 17, 2016 10:45
--- NOTE | 2016-12-17 12:05 | PN ---
Date/Time of Note Date/Time of Note DATE: 12/17/16 TIME: 11:58 Assessment/Plan VTE Prophylaxis VTE Prophylaxis Intervention: ambulation Lines/Catheters IV Catheter Type (from Nrs): Peripheral IV Urinary Cath still in place: No Assessment/Plan Assessment/Plan 36-year-old female: 1. Acute onset of epigastric right upper quadrant pain with gallstone disease. Appreciate recs from Dr Torres and Dr Hanson Patient is pain free. LFTs improving and really wants to go home Plan to start clear and advance as tolerated to soft and if tolerated will discharge home with outpatient elective cholecystectomy; if not plan for inpatient cholecystectomy. Continue abx Prophylaxis. SCDs to lower extremities for DVT prophylaxis. Pepcid for GI prophylaxis. DISPOSITION: D/c plan home today if tolerating po with outpatient surgical follow up Subjective 24 Hr Interval Summary Free Text/Dictation Patient doing better No complaints and no abdo pain x 24 hrs Appreciate GI and General Surgery recs Exam/Review of Systems Vital Signs Vitals Vital Signs Date Time Temp Pulse Resp B/P Pulse Ox O2 Delivery O2 Flow Rate FiO2 12/17/16 08:00 98.3 63 19 129/59 95 12/16/16 00:53 Room Air Intake and Output 12/16/16 12/16/16 12/17/16 15:00 23:00 07:00 Intake Total 1000 ml 1100 ml Balance 1000 ml 1100 ml Exam Constitutional: alert, oriented, well developed Respiratory: clear to auscultation, normal air movement Cardiovascular: nl pulses, regular rate and rhythm Gastrointestinal: non-tender, soft Musculoskeletal: nl extremities to inspection, other (no edema, clubbing or cyanosis ) Extremities: normal pulses Neurological: 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-XII intact, nl mental status, nl speech, nl strength Results Result Diagram: 12/16/1641912/16/16 042 Results 24 hrs Laboratory Tests Test 12/16/16 13:06 12/17/16 05:48 Amylase Level 61 Lipase 68 Hepatitis B Surface Antigen Pending Hepatitis B Core Total Antibody Pending Hepatitis C Antibody Pending Total Bilirubin 1.1 Direct Bilirubin 0.10 # Indirect Bilirubin 1.0 Aspartate Amino Transf (AST/SGOT) 262 H Alanine Aminotransferase (ALT/SGPT) 511 H Alkaline Phosphatase 192 H Medications Medications Current Medications Ondansetron HCl (Zofran Inj) 4 mg Q6H PRN IV NAUSEA AND/OR VOMITING; Start at 02:30 Acetaminophen (Tylenol Tab) 650 mg Q6H PRN PO PAIN LEVEL 1-3 OR FEVER; Start at 02:30 Acetaminophen/ Hydrocodone Bitart ([place] (5/325)) 1 tab Q6H PRN PO MODERATE PAIN LEVEL 4-6; Start 12/16/16 at 02:30 Acetaminophen/ Hydrocodone Bitart ([place] (5/325)) 2 tab Q6H PRN PO SEVERE PAIN LEVEL 7-10; Start 12/16/16 at 02:30 Morphine Sulfate (morphine) 2 mg Q4H PRN IV SEVERE PAIN LEVEL 7-10; Start 12/16 at 02:30 Docusate Sodium (Colace) 100 mg Q12H PRN PO CONSTIPATION Last administered on 03:13; Admin Dose 100 MG; Start 12/16/16 at 02:30 Magnesium Hydroxide (Milk Of Mag) 30 ml DAILY PRN PO CONSTIPATION; Start at 02:30 Bisacodyl (Dulcolax Supp) 10 mg DAILY PRN [place] CONSTIPATION; Start 12/16/16 at 02 :30 Famotidine 20 mg 20 mg Q12 IV Last administered on 12/17/16 08:17; Admin Dose 20 MG; Start 12/16/16 at 09:00 Piperacillin Sod/ Tazobactam Sod 100 ml @ 200 mls/hr Q8 IVPB Last administered on 12/17/16 05:45; Admin Dose 200 MLS/HR; Start 12/16/16 at 06:00 Potassium Chloride/Dextrose/ Sod Cl (D5-NS + KCl 20 Meq) 1,000 ml @ 100 mls/hr Q10H IV Last administered on 12/17/16 06:30; Admin Dose 100 MLS/HR; Start at 02:30 GISSELLE RENO Dec 17, 2016 12:05
[2016-12-17 13:34] LABS: HEPATITIS B CORE ANTIBODY NEGATIVE (NEGATIVE)
--- NOTE | 2016-12-17 15:29 | PDOCDIS ---
Discharge Instructions CONDITION Patient Condition: Good HOME CARE INSTRUCTIONS: Diet Instructions: RegularSpecial Diet: soft diet ACTIVITY: Activity Restrictions: No Restrictions FOLLOW UP/APPOINTMENTS Appointments Follow up with PCP within 1 week Follow up with Dr Hanson, general Surgery in 1 to 2 weeks for eval for elective cholecystectomy GISSELLE RENO Dec 17, 2016 15:29
[2016-12-17] MEDS ORDERED: ACET325T40 PO (15:31)
[2016-12-17] MEDS ORDERED: AMOX1TAB10 PO (15:31)
--- NOTE | 2016-12-17 16:02 | PN ---
Date/Time of Note Date/Time of Note DATE: 12/17/16 TIME: 15:56 Assessment/Plan VTE Prophylaxis VTE Prophylaxis Intervention: ambulation Lines/Catheters IV C[facility]ter Type (from [facility] Peripheral IV Urinary Cath still in place: No Assessment/Plan Assessment/Plan Abdominal pain HIDA scan . Nonvisualization of the gallbladder up to 4.5 hours post injection. No evidence of a common bile duct obstruction. Ultrasound Cholelithiasis without evidence of abnormal gallbladder wall thickening to suggest cholecystitis. Normal caliber of the intrahepatic and extrahepatic biliary system. MRCP The gallbladder is distended and contains sludge. Large gallstone is seen in the gallbladder neck. No gross evidence is seen to indicate .cholecystitis. No biliary dilatation or evidence of choledocholithiasis is identified * Transaminitis Plan * continue present management Subjective 24 Hr Interval Summary Free Text/Dictation * Course reviewed with RN * Patient seen and examined * Improving liver function * no abdominal pain * HIDA Nonvisualization of the gallbladder up to 4.5 hours post injection. No evidence of a common bile duct obstruction. Persistent liver activity. Exam/Review of Systems Vital Signs Vitals Vital Signs Date Time Temp Pulse Resp B/P Pulse Ox O2 Delivery O2 Flow Rate FiO2 12/17/16 08:00 98.3 63 19 129/59 95 12/16/16 00:53 Room Air Intake and Output 12/16/16 12/16/16 12/17/16 15:00 23:00 07:00 Intake Total 1000 ml 1100 ml Balance 1000 ml 1100 ml Exam Constitutional: alert Neck: non-tender, supple Respiratory: clear to auscultation, normal air movement Cardiovascular: nl pulses, regular rate and rhythm Gastrointestinal: nl liver, spleen, non-tender, soft Musculoskeletal: nl extremities to inspection, nl gait and stance Skin: nl turgor, No rash or lesions Results Result Diagram: 12/16/16 04212/16/16 0420 Results 24 hrs Laboratory Tests Test 12/17/16 05:48 Total Bilirubin 1.1 Direct Bilirubin 0.10 # Indirect Bilirubin 1.0 Aspartate Amino Transf (AST/SGOT) 262 H Alanine Aminotransferase (ALT/SGPT) 511 H Alkaline Phosphatase 192 H Medications Medications Current Medications Ondansetron HCl (Zofran Inj) 4 mg Q6H PRN IV NAUSEA AND/OR VOMITING; Start at 02:30 Acetaminophen (Tylenol Tab) 650 mg Q6H PRN PO PAIN LEVEL 1-3 OR FEVER; Start at 02:30 Acetaminophen/ Hydrocodone Bitart ([place] (5/325)) 1 tab Q6H PRN PO MODERATE PAIN LEVEL 4-6; Start 12/16/16 at 02:30 Acetaminophen/ Hydrocodone Bitart ([place] (5/325)) 2 tab Q6H PRN PO SEVERE PAIN LEVEL 7-10; Start 12/16/16 at 02:30 Morphine Sulfate (morphine) 2 mg Q4H PRN IV SEVERE PAIN LEVEL 7-10; Start 12/16 at 02:30 Docusate Sodium (Colace) 100 mg Q12H PRN PO CONSTIPATION Last administered on 03:13; Admin Dose 100 MG; Start 12/16/16 at 02:30 Magnesium Hydroxide (Milk Of Mag) 30 ml DAILY PRN PO CONSTIPATION; Start at 02:30 Bisacodyl (Dulcolax Supp) 10 mg DAILY PRN [place] CONSTIPATION; Start 12/16/16 at 02 :30 Famotidine 20 mg 20 mg Q12 IV Last administered on 12/17/16 08:17; Admin Dose 20 MG; Start 12/16/16 at 09:00 Piperacillin Sod/ Tazobactam Sod 100 ml @ 200 mls/hr Q8 IVPB Last administered on 12/17/16 05:45; Admin Dose 200 MLS/HR; Start 12/16/16 at 06:00 Potassium Chloride/Dextrose/ Sod Cl (D5-NS + KCl 20 Meq) 1,000 ml @ 100 mls/hr Q10H IV Last administered on 12/17/16 06:30; Admin Dose 100 MLS/HR; Start at 02:30 GULSHAN LUGO NP Dec 17, 2016 16:01
== END 2016-12-17 18:30 | disposition home or self-care (01) | DRG 446 ==
LOC: FTE 19:38 → PP2 12-16 00:38
PROVIDERS: ADMIT Internal Medicine; ATTEND Internal Medicine
DX: K80.20 Calculus of gallbladder without cholecystitis without obstruction (principal)
CPT/HCPCS: 74181; 76705; 78226; 80053; 80061; 81001; 82150; 82247; 82248; 83690; 83735; 84075; 84100; 84450; 84460; 85025; 85610; 85730; 86704; 86709; 86803; 87340; A9537; C9113; J2405; J2543; J3480; J7030

== ENCOUNTER 2016-12-23 07:59 | Emergency (ER) | payer OTHER ==
[~2016-12-23] VITALS: Ht 154.9 cm; Wt 64.5 kg
[~2016-12-23 07:59] MED LIST changes: +ACET325T40 PO; +AMOX1TAB10 PO; -SUCR1TAB56 PO
[2016-12-23 08:04] VITALS: Ht 154.9 cm; Wt 64.5 kg
[2016-12-23 08:50] LABS: ADD SCAN DIFF NO
[2016-12-23 08:51] LABS: BASOPHILS % 0.2 % (0.0-2.0); EOSINOPHILS # 0.1 10^3/ul (0.0-0.5); EOSINOPHILS % 0.6 % (0.0-7.0); HEMATOCRIT 39.5 % (37.0-47.0); HEMOGLOBIN 13.2 g/dl (12.0-16.0); LYMPHOCYTES # 1.3 10^3/ul (0.8-2.9); MEAN CORPUSCULAR HEMOGLOBIN 29.1 pg (29.0-33.0); MEAN CORPUSCULAR HGB CONC 33.4 g/dl (32.0-37.0); MEAN CORPUSCULAR VOLUME 87.2 fl (82.0-101.0); MEAN PLATELET VOLUME 10.3 fl (7.4-10.4); MONOCYTE # 0.8 10^3/ul (0.3-0.9); MONOCYTES % 4.6 % (0.0-11.0); NEUTROPHIL # 14.1 10^3/ul (1.6-7.5); NEUTROPHILS % 86.2 % (39.0-77.0); PLATELET COUNT 274 10^3/UL (140-415); RED BLOOD COUNT 4.53 10^6/ul (4.20-5.40); RED CELL DISTRIBUTION WIDTH 12.7 % (11.5-14.5); WHITE BLOOD COUNT 16.4 10^3/ul (4.8-10.8)
[2016-12-23 08:54] LABS: ADD UMIC YES; UR ASCORBIC ACID NEGATIVE (NEGATIVE); UR BACTERIA FEW /HPF (NONE SEEN); UR BILIRUBIN (Dip) NEGATIVE (NEGATIVE); UR BLOOD (Dip) 1+ mg/dL (NEGATIVE); UR CLARITY CLEAR (CLEAR); UR COLOR YELLOW (YELLOW); UR GLUCOSE (Dip) NEGATIVE (NEGATIVE); UR KETONES (Dip) NEGATIVE (NEGATIVE); UR LEUKOCYTE ESTERASE (Dip) NEGATIVE Leu/ul (NEGATIVE); UR NITRITE (Dip) NEGATIVE (NEGATIVE); UR RBC 0 /HPF (0-5); UR SPECIFIC GRAVITY (Dip) 1.008 (1.003-1.030); UR TOTAL PROTEIN (Dip) NEGATIVE (NEGATIVE); UR UROBILINOGEN (Dip) NEGATIVE (NEGATIVE)
[2016-12-23 09:09] LABS: ALBUMIN 4.9 g/dl (3.3-4.9); ALBUMIN/GLOBULIN RATIO 1.44; BILIRUBIN,INDIRECT 0.4 mg/dl (0-1.1); BILIRUBIN,TOTAL 0.4 mg/dl (0.2-1.3); CALCIUM 9.9 mg/dl (8.4-10.2); CREATININE 0.61 mg/dl (0.44-1.00); POTASSIUM 3.8 mmol/L (3.5-5.1); TOTAL PROTEIN 8.3 g/dl (6.1-8.1)
--- NOTE | 2016-12-23 09:37 | RADRPT ---
PROCEDURE: Right Upper Quadrant Ultrasound. CLINICAL INDICATION: Abdominal Pain TECHNIQUE: Multiple real-time images were acquired of the patient's right upper quadrant abdomen a nd retroperitoneum utilizing a high resolution transducer. COMPARISON: Gallbladder ultrasound from 12/15/2016, MRCP and HIDA scan from 12/16/2016 FINDINGS: The liver measures 14.6 cm, and demonstrates normal echogenicity. The main portal vein is patent wit h proper directional flow. There is no intrahepatic biliary ductal dilatation. The extrahepatic comm on bile duct measures 4 mm. There is cholelithiasis. There is no gallbladder wall thickening or pericholecystic fluid. The visualized pancreas is unremarkable. The right kidney measures 9.7 cm and demonstrates normal echotexture. There is no right renal calcul us or hydronephrosis. The visualized abdominal aorta and IVC are grossly unremarkable. IMPRESSION: Cholelithiasis is again noted without evidence of acute cholecystitis. Normal CBD. RPTAT: EE Physician Misty Date Time Electronically viewed and signed by Physician Misty on 12/23/2016 09:37 /
[2016-12-23] MEDS ORDERED: LOPE2CAP PO (09:55)
--- NOTE | 2016-12-23 10:11 | ERD ---
ER Documentation Chief Complaint Date/Time DATE: 12/23/16 TIME: 10:07 Chief Complaint has been having diarrhea all night and felt warm HPI This is a 36-year-old female presents to the ER for diarrhea that did last night. Diarrhea is watery and nonbloody. She admits to having a fever. She denies any nausea or vomiting she denies any. Patient came to the ER because she was here 3 weeks ago for possible cholecystitis and was told to return if she developed a fever nausea vomiting or diarrhea. Patient's appetite has been normal she denies any urinary frequency or dysuria. ROS 12 point review of systems was done, all negative except per HPI. Medications Home Meds Active Scripts Loperamide Hcl* (Imodium*) 2 Mg Capsule, 2 MG PO .AFTER EA LOOSE BM Y for DIARRHEA, #10 TAB Prov:MAGGIE MERA 12/23/16 Amoxicillin/Potassium Clav (Amox-Clav 875-125 mg Tablet) 875-125 mg Tab, 1 TAB PO BID for 5 Days, TAB Prov:GISSELLE RENO 12/17/16 Acetaminophen (MAPAP) 325 Mg Tablet, 650 MG PO Q6H Y for PAIN LEVEL 1-3 OR FEVER , #30 TAB OTC Prov:GISSELLE RENO 12/17/16 Ranitidine Hcl* (Zantac*) 150 Mg Tablet, 150 MG PO BID Y for EPIGASTRIC PAIN, # 30 TAB Prov:BERNICE TIPTON 12/15/16 Discontinued Scripts Sucralfate* (Carafate*) 1 Gm Tab, 1 GM PO QID, #30 TAB Prov:BERNICE TIPTON 12/15/16 Allergies Allergies: Coded Allergies: No Known Allergy (Unverified Allergy, Unknown, 05/31/06) PMhx/Soc History of Surgery: Yes (c/s) Anesthesia Reaction: No Hx Neurological Disorder: No Hx Respiratory Disorders: No Hx Cardiac Disorders: No Hx Psychiatric Problems: No Hx Miscellaneous Medical Probl: No Hx Alcohol Use: No Hx Substance Use: No Hx Tobacco Use: No Physical Exam Vitals Vital Signs Date Time Temp Pulse Resp B/P Pulse Ox O2 Delivery O2 Flow Rate FiO2 12/23/16 08:04 98.0 100 18 124/68 97 Physical Exam GENERAL: The patient is well developed and appropriate for usual state of health , in no apparent distress. HEENT: Atraumatic CHEST: Clear to auscultation bilaterally. There are no rales, wheezes or rhonchi. HEART: Regular rate and rhythm. No murmurs, clicks, rubs or gallops. ABDOMEN: Soft, nontender and nondistended. Good bowel sounds. No rebound or guarding. No gross peritonitis. No gross organomegaly or masses. No Vera sign or McBurney point tenderness. BACK: No midline or flank tenderness. NEURO: Alert and oriented. SKIN: The skin is warm and dry. Result Diagram: 12/23/16 0844 12/23/16 0844 Results 24 hrs Laboratory Tests Test 12/23/16 08:38 12/23/16 08:44 Urine Color YELLOW Urine Clarity CLEAR Urine pH 7.0 Urine Specific [place] 1.008 Urine Ketones NEGATIVEmg/dL Urine Nitrite NEGATIVEmg/dL Urine Bilirubin NEGATIVEmg/dL Urine Urobilinogen NEGATIVEmg/dL Urine Leukocyte Esterase NEGATIVELeu/ul Urine Microscopic RBC 0/HPF Urine Microscopic WBC 0/HPF Urine Bacteria FEW/HPF Urine Hemoglobin 1+mg/dL Urine Glucose NEGATIVEmg/dL Urine Total Protein NEGATIVEmg/dl White Blood Count 16.410^3/ul Red Blood Count 4.5310^6/ul Hemoglobin 13.2g/dl Hematocrit 39.5% Mean Corpuscular Volume 87.2fl Mean Corpuscular Hemoglobin 29.1pg Mean Corpuscular Hemoglobin Concent 33.4g/dl Red Cell Distribution Width 12.7% Platelet Count 88576^3/UL Mean Platelet Volume 10.3fl Neutrophils % 86.2% Lymphocytes % 8.0% Monocytes % 4.6% Eosinophils % 0.6% Basophils % 0.2% Nucleated Red Blood Cells % 0.0/100WBC Neutrophils # 14.110^3/ul Lymphocytes # 1.310^3/ul Monocytes # 0.810^3/ul Eosinophils # 0.110^3/ul Basophils # 0.010^3/ul Nucleated Red Blood Cells # 0.010^3/ul Sodium Level 143mmol/L Potassium Level 3.8mmol/L Chloride Level 108mmol/L Carbon Dioxide Level 22mmol/L Anion Gap 17 Blood Urea Nitrogen 9mg/dl Creatinine 0.61mg/dl Glucose Level 124mg/dl Calcium Level 9.9mg/dl Total Bilirubin 0.4mg/dl Direct Bilirubin 0.00mg/dl Indirect Bilirubin 0.4mg/dl Aspartate Amino Transf (AST/SGOT) 21IU/L Alanine Aminotransferase (ALT/SGPT) 99IU/L Alkaline Phosphatase 119IU/L Total Protein 8.3g/dl Albumin 4.9g/dl Globulin 3.40g/dl Albumin/Globulin Ratio 1.44 Lipase 56U/L Procedures/MDM Differential Diagnosis: GERD, gastritis, peptic ulcer disease, pancreatitis, cholecystitis, choledocholithiasis, biliary colic, cholangitis, [id number]-Ffalon , ACS/DC, Pnuemonia . This is a 36-year-old female presents to the ER with diarrhea that occurred last night. This is likely viral in etiology, I do not believe that this has anything to do with patient's gallbladder as she does not have any right upper quadrant pain. Patient is afebrile and well-appearing, her liver enzymes are not impressive and there is not an elevation in bilirubin or lipase. Patient does not appear dehydrated. She will be sent home with Imodium. She is to follow-up with her primary care doctor within 1-2 days or return to ER sooner if symptoms worsen. My medical decision making shared with the patient she understands and agrees with plan. Departure Diagnosis: Primary Impression: Diarrhea Condition: Stable Patient Instructions: Treating Diarrhea Additional Instructions: Call your primary care doctor TOMORROW for an appointment during the next 1-2 days.See the doctor sooner or return here if your condition worsens before your appointment time. MAGGIE MERA Dec 23, 2016 10:11
== END 2016-12-23 10:05 | disposition home or self-care (01) ==
LOC: FTE 07:59
DX: R19.7 Diarrhea, unspecified (principal)
CPT/HCPCS: 36415; 76705; 80053; 81001; 83690; 85025; Z7502